=== PATIENT | male | born 1950 | race Two or more races ===

== ENCOUNTER 2018-11-20 11:30 | Day surgery (SDC) | payer OTHER, BC ==
[2018-11-20] MEDS ORDERED: PROPOFOL 40 ML (13:35)
== END 2018-11-20 15:01 | disposition home or self-care (01) ==
LOC: GIL 11:30
DX: K57.30 Diverticulosis of large intestine without perforation or abscess without bleeding (principal); K64.8 Other hemorrhoids; K20.8 Other esophagitis; K29.50 Unspecified chronic gastritis without bleeding; D64.9 Anemia, unspecified; I10 Essential (primary) hypertension
CPT/HCPCS: 43239; 88305; 88312; 88313